=== PATIENT | male | born 1970 | race Caucasian/White ===

== ENCOUNTER 2024-07-21 07:00 | Emergency (ER) | payer SELFPAY ==
[2024-07-21] MEDS: methylPREDNISolone Sodium Succinate 125 MG/2 ML SDV IVPUSH ONE (07:52)
[2024-07-21] MEDS: Ibuprofen 600 MG Tab PO ONE (07:54)
[2024-07-21] MEDS: cefTRIAXone 2 GM in Sodium Chloride 0.9% 100 ML IV ONE (07:54)
[2024-07-21] MEDS: Dextrose 5%-0.9% NaCl 1,000 ML IV SCH (07:54)
[2024-07-21 08:04] LABS: BASOPHILS ABSOLUTE AUTO 0.1 K/mm3 (0.0-0.2); BASOPHILS PERCENT AUTO 0.7 % (0.0-1.0); EOSINOPHILS ABSOLUTE AUTO 0.3 K/mm3 (0.0-0.4); EOSINOPHILS PERCENT AUTO 4.8 % (0.0-6.0); HEMATOCRIT 41.8 % (42.0-52.0); HEMOGLOBIN 13.8 gm/dl (14.0-18.0); IMMATURE GRAN ABSOLUTE AUTO 0.01 K/mm3 (0.00-0.05); IMMATURE GRAN PERCENT AUTO 0.1 % (0.0-0.4); LYMPHOCYTES ABSOLUTE AUTO 1.8 K/mm3 (1.0-4.8); MEAN CORPUSCULAR HEMOGLOBIN 30.8 pg (28.0-32.0); MEAN CORPUSCULAR VOLUME 93.3 fl (83.0-99.0); MEAN PLATELET VOLUME 10.6 fl (9.4-12.4); MONOCYTES ABSOLUTE AUTO 0.8 K/mm3 (0.0-0.8); MONOCYTES PERCENT AUTO 11.1 % (0.0-8.0); NEUTROPHILS PERCENT AUTO 57.3 % (41.0-71.0); PLATELET COUNT,PLT 284 K/mm3 (150-400); RED BLOOD CELL COUNT 4.48 M/mm3 (4.52-5.90); WHITE BLOOD CELL COUNT,WBC 6.93 K/mm3 (3.9-11.3)
[2024-07-21 08:28] LABS: A/G RATIO 1.1 (1-2); ALBUMIN 3.3 g/dl (3.4-5.0); ANION GAP 9.8 (5-15); BILIRUBIN TOTAL 0.2 mg/dL (0.2-1.0); C-REACTIVE PROTEIN 1.02 mg/dL (<0.30); CALCIUM 8.5 mg/dL (8.5-10.1); EST CRCL DRUG DOSING (CG) 74.43 mL/min; POTASSIUM,K 3.8 mEq/L (3.5-5.1); PROTEIN TOTAL,TP 6.3 g/dl (6.4-8.2)
[2024-07-21] MEDS: Bacitracin Oint 15 GM Tube TOP SCH (10:48)
[2024-07-21] MEDS: Doxycycline Monohydrate 100 MG Cap PO ONE (10:49)
== END 2024-07-21 10:30 | disposition home or self-care (01) ==
LOC: JD.ED 07:00
DX: L03.116 Cellulitis of left lower limb (principal); Z79.891 Long term (current) use of opiate analgesic
CPT/HCPCS: 36415; 80053; 85025; 86140; 96361; 96365; 96375; 99283; A9270; J0696; J2919; J3490; J7042; 99284